=== PATIENT | female | born 1925 | race Caucasian/White ===

== ENCOUNTER 2016-04-22 05:44 | Day surgery (SDC) | payer MEDICARE ==
[~2016-04-22 05:44] MED LIST: IV START KIT ONE; LACTATED RINGERS 1,000 ML ONE
[2016-04-22] MEDS ORDERED: CEFAZOLIN SODIUM 2 GRAM PREMIX 100 ML IV PRN (06:00)
[2016-04-22] MEDS ORDERED: CEFAZOLIN SODIUM 2 GRAM PREMIX 100 ML IV ONE (06:12)
[2016-04-22] MEDS ORDERED: MIDAZOLAM HCL 1 MG/ML 2ML VIAL ONE (06:53)
[2016-04-22] MEDS ORDERED: FENTANYL 5 ML ONE (06:54)
[2016-04-22] MEDS ORDERED: SPINAL PROCEDURAL TRAY 1 EACH ONE (06:54)
[2016-04-22] MEDS ORDERED: PROPOFOL 20 ML IV ONE (06:58)
[2016-04-22] MEDS ORDERED: WATER FOR INJECTION,STERILE 10 ML ONE (06:58)
[2016-04-22] MEDS ORDERED: IOPAMIDOL 300 (61%) 30 ML SDV ONE (06:58)
[2016-04-22] MEDS ORDERED: WATER FOR INJECTION,STERILE 20 ML ONE (07:00)
[2016-04-22] MEDS ORDERED: OPIUM/BELLADONNA ALKALOIDS 1 EACH SUP PR ONE (07:01)
[2016-04-22] MEDS ORDERED: ATROPINE SULFATE 0.4 MG/1 ML VIAL IV PRN (07:44)
[2016-04-22] MEDS ORDERED: ONDANSETRON 4 MG/2ML 2 ML VIAL IV PRN ×2 (07:44→08:39)
[2016-04-22] MEDS ORDERED: NALOXONE HCL 0.4 MG/ML VIAL IV PRN (07:44)
[2016-04-22] MEDS ORDERED: MEPERIDINE 25 MG/ML SYRINGE IV PRN (07:44)
[2016-04-22] MEDS ORDERED: FENTANYL 100 MCG/2 ML VIAL IV PRN (07:44)
[2016-04-22] MEDS ORDERED: HYDROMORPHONE HCL 1 MG/ML SYRINGE IV PRN (07:44)
[2016-04-22] MEDS ORDERED: LACTATED RINGERS 1,000 ML IV SCH (07:45)
[2016-04-22] MEDS ORDERED: EPHEDRINE SULFATE 50 MG/ML 1ML VIAL ONE (07:53)
[2016-04-22] MEDS ORDERED: SODIUM CHLORIDE 0.9% FLUSH 10 ML ONE (07:53)
--- NOTE | 2016-04-22 08:33 | RAD ---
RETROGRADE UROGRAM HISTORY: Retrograde urogram. COMPARISONS: 06/19/2015 retrograde urogram FINDINGS: Multiple fluoroscopic images during retrograde urogram are obtained. Initial images demonstrate retrograde cannulization and opacification of the left collecting system. Subsequent images demonstrate similar procedure on the right. There is a decreased amount of contrast within the lower pole calyces on the right. This is worse than on prior study. Finding may be artifactual in nature depending on point of image acquisition. No filling defects are noted within the ureters bilaterally. Fluoroscopy time: 61.5 seconds. IMPRESSION: Decreased filling of the right lower pole collecting system which may be artifactual in nature. Otherwise exam is unremarkable. Please see urologist note regarding the procedure for further details.
[2016-04-22] MEDS ORDERED: MORPHINE SULFATE 2 MG/ML SYRINGE IV PRN (08:39)
[2016-04-22] MEDS ORDERED: HYDROCODONE/ACETAMINOPHEN 5/325MG TABLET PO PRN (08:39)
[2016-04-22] MEDS ORDERED: OPIUM/BELLADONNA ALKALOIDS 1 EACH SUP PR PRN (08:39)
[2016-04-22] MEDS ORDERED: PHENAZOPYRIDINE HCL 200 MG TABLET PO SCH (09:00)
[2016-04-22] MEDS ORDERED: PHENAZOPYRIDINE HCL 200 MG TABLET ONE (09:33)
[2016-04-22] MEDS ORDERED: ONDANSETRON 4 MG/2ML 2 ML VIAL ONE (11:17)
--- NOTE | 2016-04-22 13:15 | OP ---
LETICIA VILLALPANDO [id number] DATE OF OPERATION: April 22, 2016 SURGEON: Jack Vital M.D. RESEARCH COORDINATOR: None. ANESTHESIA: Spinal. PREOPERATIVE DIAGNOSES: Recurrent bladder carcinoma. POSTOPERATIVE DIAGNOSES: Recurrent bladder carcinoma. PROCEDURES: 1. CYSTOSCOPY. 2. BILATERAL RETROGRADE URETEROGRAPHY. 3. TRANSURETHRAL RESECTION OF MULTIPLE BLADDER TUMORS. SPECIMENS: Fragments of multiple bladder tumors. 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 In March, her scheduled cystoscopy revealed several papillary tumors including three very near the bladder neck which could not be effectively dealt with in the clinic setting. We did check a suspicious urothelium near the region of her previous tumor resection at the left orifice and this proved to be benign and therefore requires no further special attention at this point. FINDINGS: The urethra is normal, well supported. There was a mild cystocele. The retrograde studies on both sides were normal. Previous scar tissue from tumor resections noted in several places in the bladder. There were papillary tumors situated in the posterior dome, and very near the bladder neck at the 5 o'clock, 8 o'clock and 11 o'clock positions. These were somewhat difficult to remove, but we were able to remove them all the way down and fulgurate their bases. Composite size of the lesions was greater than 5 cm. PROCEDURE: The patient was identified and brought to the operating room where spinal anesthesia was induced and then she was placed in a dorsal lithotomy position. The genital region was prepared and draped sterilely. We introduced a 21 Bulgarian rigid cystoscope and used saline as an irrigant. Finding are reported above. Using a cone tip catheter, retrograde studies of each ureter and renal pelvis were completed with fluoroscopic assistance. Next, we switched over to a cauterizing biopsy forceps and switched the irrigant to water. First we removed the posterior dome lesion and fulgurated its base. We then turned our attention to the tumors near the bladder neck using a 12 degree lens initially and ultimately confirming with a 25 degree lens. The tumors were resected and their bases fulgurated. Once these were complete and the sample removed. The cystoscope was withdrawn and a [address] type was placed and left to gravity drainage with 10 mL of water in its balloon. Temporary three-way saline irrigation was instituted to observe for hematuria. Estimated blood loss less than 10 mL. No early complications. Patient tolerated the procedure well and was taken in stable condition to the post anesthesia room. cc: Jack Vital M.D. Raulito Balbuena M.D.
--- NOTE | 2016-04-24 13:40 | SURGPATH ---
[facility] [address] [place] [id number] Patient Name: LETICIA VILLALPANDO MR#: [id number] : 1925 Gender: F Specimen #: [id number] Collected: 04/22/2016 Received: 04/23/2016 Reported: 04/24/2016 Submitting Phys: GARETH VILLAR Copy To Phys: [facility] YULIYA PORTER Clinical History / Pre-Operative Diagnosis: RECURRENT BLADDER TUMOR Specimen Source / Surgical Procedure Performed: FRAGMENTS OF BLADDER TUMOR HIGH PRIORITY DIAGNOSIS. REQUIRES CLINICAL ATTENTION Interpretation: FRAGMENTS OF BLADDER TUMOR: - LOW-GRADE PAPILLARY UROTHELIAL CARCINOMA. - NO LAMINA PROPRIA INVASION IDENTIFIED. - NO MUSCULARIS PROPRIA PRESENT FOR EVALUATION. Electronically Signed Out Danisha Hsieh M.D. Gross Description: The specimen is received in a formalin filled container labeled with the patient's name and "fragments of bladder tumor". An aggregate of papillary, pale ray tissue fragments is 1.5 x 1.0 x 0.3 cm. Totally embedded in one cassette. 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 There is no evidence of lamina propria invasion. No muscularis propria is present for evaluation. 1: [id number] C67.9
== END 2016-04-22 12:00 | disposition home or self-care (01) ==
LOC: SDC 05:44
PROVIDERS: ATTEND Urology
PROC: 0TBB8ZX Excision of Bladder, Via Natural or Artificial Opening Endoscopic, Diagnostic (ICD-10-PCS; principal; 2016-04-22)
DX: C67.8 Malignant neoplasm of overlapping sites of bladder (principal); I10 Essential (primary) hypertension; E03.9 Hypothyroidism, unspecified; E78.00 Pure hypercholesterolemia, unspecified; Z87.891 Personal history of nicotine dependence
CPT/HCPCS: 74420; 52240; J3010; A9270 ×2; J2250; J2405; J7120; Q9967; J0690

== ENCOUNTER 2016-07-09 02:10 | Emergency (ER) | payer MEDICARE ==
--- NOTE | 2016-07-09 08:05 | US ---
DUPLX SCAN VEIN EXT UNI RT History: Calf cramping and swelling. Findings: Ultrasonography of the right lower extremity was performed, with grayscale color and Doppler technique utilizing evaluation of the lower extremity. There is adequate compressibility of the deep venous system without current findings of deep venous thrombosis. Normal responses are seen to augmentation and Valsalva maneuvers. Normal respiratory variation is observed as well. Impression: 1. A right lower extremity ultrasound which currently appears negative, with no current findings of deep venous thrombosis observed. The findings were called to the emergency room at 0420 hours, 07/09/2016, by [facility]ology.
== END 2016-07-09 04:32 | disposition home or self-care (01) ==
LOC: ED 02:10
DX: M79.661 Pain in right lower leg (principal); I10 Essential (primary) hypertension; E78.5 Hyperlipidemia, unspecified